=== PATIENT | female | born 1955 | race Caucasian/White ===

== ENCOUNTER 2022-02-26 15:31 | Outpatient (CLI) | payer OTHER, SELFPAY ==
[2022-02-26 21:56] LABS: Albumin* 4.7 g/dL (3.3-5.0); Chloride* 99 mmol/L (96-114); Potassium* 4.2 mmol/L (3.6-5.1); Sodium* 132 mmol/L (135-149)
[2022-02-26 21:58] LABS: Creatinine* 0.7 mg/dL (0.5-1.5); Estimated Glomerular Filt Rate 95 ml/min
[2022-02-26 21:59] LABS: Alanine Aminotransferase* 21 U/L (4-35); Alkaline Phosphatase* 63 U/L (40-150); Aspartate Amino Transferase* 30 U/L (12-35); Bilirubin Total* 0.6 mg/dL (0.1-1.5); Blood Urea Nitrogen* 17 mg/dL (7-30); Carbon Dioxide* 25 mmol/L (20-32); Glucose* 88 mg/dL (60-115); Lipase* 61 U/L (23-300); Total Protein* 7.1 g/dL (6.0-8.3)
[2022-02-26 22:00] LABS: Calcium* 9.7 mg/dL (8.4-10.6)
== END 2022-02-26 15:32 | disposition home or self-care (01) ==
PROVIDERS: PCP Physician Assistant Medical; Visit Provider Family Medicine
DX: R10.9 Unspecified abdominal pain (principal)
CPT/HCPCS: 80053; 83690

== ENCOUNTER 2022-03-18 13:07 | Outpatient (CLI) | payer OTHER, SELFPAY ==
--- NOTE | 2022-03-18 14:00 | CRLHL7_ITS ---
For Patients: As a result of the Century Cures Act, medical imaging exams and procedure reports are released immediately into your electronic medical record. You may view this report before your referring provider. If you have questions, please contact your health care provider. Indication: RLQ PAIN X 1 MONTH Technique: Postcontrast CT abdomen and pelvis. 78 cc Isovue 370 intravenous contrast. Oral water. Please note that all CT scans at this facility use dose modulation, iterative reconstruction, and/or weight-based dosing when appropriate to reduce radiation dose to as low as reasonably achievable. Comparison: None Findings: Lung bases are clear. No pleural effusion is present. There is no basilar infiltrate. No free intraperitoneal air is present. Subcentimeter simple cyst anterior segment right hepatic lobe. No suspicious intrahepatic mass. The liver size is mildly prominent measuring up to 20 cm in length. Gallbladder normal. No calcified gallstones or biliary obstruction. Normal pancreas. The spleen is normal. Normal adrenal glands and kidneys. Normal ureters. Vascular calcifications. No aneurysm. No adenopathy. Normal bladder. Uterus and adnexa are normal. Normal appendix. No inflammatory changes. No diverticulitis or bowel obstruction. No abdominal wall hernia. No fracture. Degenerative disc disease on the right at L2-3. Impression: Normal appendix. No bowel obstruction or inflammatory changes. Mild hepatomegaly. Normal gallbladder. No adnexal mass. No renal or ureteral stone. Please note that all CT scans at this facility use dose modulation, iterative reconstruction, and/or weight-based dosing when appropriate to reduce radiation dose to as low as reasonably achievable. Dictated by Estevan Cullen MD @ 03/19/2022 11:18:54 AM (Electronically Signed)
== END 2022-03-18 13:08 | disposition home or self-care (01) ==
PROVIDERS: PCP Physician Assistant Medical; Visit Provider Family Medicine
DX: R10.31 Right lower quadrant pain (principal); K59.00 Constipation, unspecified; R16.0 Hepatomegaly, not elsewhere classified
CPT/HCPCS: 74177; Q9967